=== PATIENT | male | born 1965 | race Caucasian/White ===

== ENCOUNTER 2016-12-23 16:26 | Emergency (ER) | payer MEDICARE, OTHER | END 2016-12-23 19:37 | disposition home or self-care (01) | LOC: ER 16:26 | PROC: 3E0234Z Introduction of Serum, Toxoid and Vaccine into Muscle, Percutaneous Approach (ICD-10-PCS; principal; 2016-12-23) | DX: S51.812A Laceration without foreign body of left forearm, initial encounter (principal); W19.XXXA Unspecified fall, initial encounter; Y92.524 Gas station as the place of occurrence of the external cause; I10 Essential (primary) hypertension; M10.9 Gout, unspecified; Z23 Encounter for immunization | CPT/HCPCS: 12002; 90471; 90715; 99070; 99282-25; 99283 ==